=== PATIENT | male | born 1975 | race Caucasian/White ===

== ENCOUNTER 2018-01-22 00:43 | Emergency (ER) | payer SELFPAY ==
[~2018-01-22] VITALS: Ht 182.9 cm; Wt 99.8 kg
[~2018-01-22 00:43] MED LIST: AMOCLA875 PO; AMOX500 PO; CEPH500 PO; Cleocin HCl300 MG PO; HYDACE5 PO; OXYACE5T PO; Roxicodone5 MG PO
== END 2018-01-22 03:05 | disposition home or self-care (01) ==
LOC: ER 00:43
DX: T15.02XA Foreign body in cornea, left eye, initial encounter (principal); H16.002 Unspecified corneal ulcer, left eye
CPT/HCPCS: 65222; 99283

== ENCOUNTER 2019-02-23 08:53 | Inpatient (IN) | payer SELFPAY ==
[~2019-02-23] VITALS: Ht 182.9 cm; Wt 90.7 kg
[2019-02-23 09:51] LABS: BASOPHILS ABSOLUTE AUTO 0.02 K/mm3 (0.00-0.23); BASOPHILS PERCENT AUTO 0 % (0-2); EOSINOPHILS ABSOLUTE AUTO 0.02 K/mm3 (0.00-0.68); EOSINOPHILS PERCENT AUTO 0 % (0-6); Hemoglobin 15.8 g/dL (13.5-17.5); IMMATURE GRAN ABSOLUTE AUTO 0.02 K/mm3 (0.00-0.10); IMMATURE GRAN PERCENT AUTO 0 % (0-1); LYMPHOCYTES ABSOLUTE AUTO 0.98 K/mm3 (0.84-5.20); LYMPHOCYTES PERCENT AUTO 11 % (21-46); MONOCYTES ABSOLUTE AUTO 0.36 K/mm3 (0.16-1.47); MONOCYTES PERCENT AUTO 4 % (4-13); Mean Corpuscular HGB 31.5 pg (26.0-34.0); Mean Corpuscular HGB Conc 33.6 g/dL (31.5-36.5); Mean Corpuscular Volume 94 fL (80-100); Mean Platelet Volume 9.8 fL (9.1-12.4); NEUTROPHILS ABSOLUTE AUTO 7.21 K/mm3 (1.96-9.15); NEUTROPHILS PERCENT AUTO 84 % (41-73); Platelet Count 225 K/mm3 (150-400); RDW Coefficient Variation 11.9 % (11.7-14.2); RDW Standard Deviation 41.4 fL (35.1-46.3); Red Blood Cell Count 5.01 M/mm3 (4.30-5.90); White Blood Cell Count 8.61 K/mm3 (4.00-11.30)
[2019-02-23 10:11] LABS: Alanine Aminotransfer (ALT/SGP 33 U/L (12-78); Albumin, Blood 4.4 g/dL (3.4-5.0); Albumin/Globulin Ratio 1.3 (0.8-1.8); Alk Phos 84 U/L (50-136); Anion Gap 6 mmol/L (6-16); Aspartate Aminotrans (AST/SGOT 24 U/L (12-37); Bilirubin, Total 0.6 mg/dL (0.1-1.0); Blood Urea Nitrogen 15 mg/dL (8-24); Bun/Creatinine Ratio 18.1 (12.0-20.0); CO2, Blood 29 mmol/L (21-32); Chloride, Blood 105 mmol/L (98-108); Creatinine, Blood 0.83 mg/dL (0.60-1.20); Globulin, Blood 3.4 g/dL (2.2-4.0); Glomerular Filtration Rate >60 (60-); Glucose, Blood 126 mg/dL (70-99); Potassium, Blood 3.4 mmol/L (3.5-5.5); Sodium, Blood 140 mmol/L (136-145); Total Protein, Blood 7.8 g/dL (6.4-8.2)
[2019-02-23 11:05] LABS: Source, Urine Clean Catch
[2019-02-23 11:10] LABS: Bilirubin, Urine Neg (Neg); Blood, Urine Neg (Neg); Glucose Qualitative, Urine Neg (Neg); Ketones, Urine 3+ (Neg); Leukocyte Esterase, Urine Neg (Neg); Nitrite, Urine Neg (Neg); Protein, Urine 1+ (Neg); Urobilinogen, Urine NORM (Normal)
[2019-02-23 11:18] LABS: Appearance, Urine Clear (Clear); Color, Urine Yellow (P-Yellow)
--- NOTE | 2019-02-23 18:21 | NUR ---
THIS PT ARRIVED TO THE UNIT AT 1330. HE COMPLAINED OF 7/10 ABDOMINAL PAIN, WAS TREATED PER EMAR WITH FENTANYL 35 MCG Q4H. THIS WAS NOT PROPERLY RELIEVING THE PATIENT'S PAIN. HE WAS MOANING AND YELLING OUT IN PAIN, DEMANDING HE GET RELIEF SOON POSSIBLE. THE RN CALLED DR. ARANDA AND REPORTED THE PATIENT'S PAIN, HE ORDERED FENTANYL 35 MCG Q2H ALONG WITH ATIVAN 1-2 MG Q4H. HE ALSO ORDERED NG TUBE PLACEMENT. 2MG OF ATIVAN WAS ADMINISTERED AND THE NG TUBE WAS PLACED WITH INTERMITTENT SUCTION. A TOTAL OF 90 ML OF BLOOD TINGED FLUID HAS BEEN SUCTIONED SO FAR. SINCE THE PLACEMENT OF THE NG TUBE AND ADMINISTRATION OF ATIVAN, THE PT HAS BEEN ABLE TO SLEEP. HIS BLOOD PRESSURE HAS BEEN HIGH ALL DAY. HYDRALAZINE AND LABETALOL HAVE BEEN ORDERED FOR SBP GREATER THAN 160 mm Hg. WILL CONTINUE TO MONITOR.
--- NOTE | 2019-02-24 04:14 | NUR ---
SUMMARY: NO ACUTE CHANGE TONIGHT. PT REPORTS FEELING "MUCH BETTER" AND ABLE TO SLEEP. NGT DRAINED ML, DARK GREEN OUTPUT. PT HAS DENIED N/V, PAIN. UP WITH SBA TO BATHROOM. VSS, NO ACUTE SAFETY CONCERNS AT THIS TIME.
[2019-02-24 05:50] LABS: Anion Gap 7 mmol/L (6-16); Blood Urea Nitrogen 14 mg/dL (8-24); Bun/Creatinine Ratio 16.5 (12.0-20.0); CO2, Blood 26 mmol/L (21-32); Calcium, Blood 8.3 mg/dL (8.5-10.1); Chloride, Blood 108 mmol/L (98-108); Creatinine, Blood 0.85 mg/dL (0.60-1.20); Glomerular Filtration Rate >60 (60-); Glucose, Blood 104 mg/dL (70-99); Potassium, Blood 3.8 mmol/L (3.5-5.5); Sodium, Blood 141 mmol/L (136-145)
--- NOTE | 2019-02-24 17:38 | NUR ---
HE HAS BEEN FEELING BETTER TODAY.NO NAUSEA. HIS NGT PUT OUT 225 MLS THIS SHIFT TO SUCTION. AT 1600 HIS NGT WAS PLACED TO GRAVITY INSTEAD. SMALL AMT OF PALE GREEN FLUID IN TUBING. HE HAS TAKEN IN 300 MLS OF CLEAR LIQUID SO FAR. HE RECEIVED FENTANYL X1 FOR H/A. IT HELPED A LITTLE BIT. HE HAS BEEN UP TO THE BATHROOM INDEPENDENTLY. HE PASSED GAS BUT NO BM. HE HAD GOOD BOWEL SOUNDS ON ASSESSMENT THIS MORNING. IVF'S HAVE . WILL CHECK WITH MD. TELE IS NSR. PAS ON BILATERALLY. BP MUCH IMPROVED OVER YESTERDAY. JUST SPOKE WITH . WILL CONTINUE LR IVF AT 75 MLS/HR. TELE NSR 84.
--- NOTE | 2019-02-25 07:24 | NUR ---
SHIFT SUMMARY PT IS A 43 Y/O MALE, ADMITTED WITH A SBO. HE IS A&O X 4, AND SBA/INDEPENDENT IN THE ROOM. THE PT CURRENTLY HAS AN NG TUBE THAT WAS CHANGED FROM SUCTION TO GRAVITY, AND PLACED ON A CLEAR LIQUID DIET. THE PT DENIED ANY COMPLAINTS OF NAUSEA OR ABD PAIN DURING THE NIGHT, AND TOLERATED THE CLEAR LIQUID DIET WELL. HE HAD ONE SMALL BM DURING THE NIGHT. HE WAS GIVEN ATIVAN ONCE DURING THE NIGHT FOR ANXIETY RELATED TO HIS NG TUBE. VITAL SIGNS STABLE. NO OTHER ACUTE CHANGES IN PT CONDITION NOTED. WILL CONTINUE TO MONITOR AND TREAT PER EMAR.
[2019-02-25] MEDS ORDERED: HYDR10 PO (16:13)
[2019-02-25] MEDS ORDERED: ACET325 PO (16:13)
[2019-02-25] MEDS ORDERED: ONDA4ODT MM (16:14)
--- NOTE | 2019-02-25 20:08 | NUR ---
SHIFT SUMMARY PT A&OX4. PT MAKES NEEDS KNOWN. PT IND IN ROOM. REPORTS HEADACHE/NOSE PAIN, MEDICATED, WITH FENTANYL WITH POSIVE RESULTS. PT DENIES NAUSEA/VOMITING, REPORTS FLATULENCE AND BM LAST NIGHT, BS HYPERACTIVE X4 QUAD. ABD NONTENDER ON PALPATION. NG TUBE IN PLACE THIS AM, DRAINING TO GRAVITY, ORDERS TO D/C, REMOVED AT 1330. PT CONTINUES TO DENIES N/V AND REPORT FLATULENCE. PT ADVANCE TO FULL LIQUID DIET, APPEARS TO TOLERATE WELL. PT DENIES SOB, >90% ON RA. PT HYPERTENSIVE THIS AM, MEDICATED WITH APRESSOLINE PER EMAR, WITH POSITIVE RESULTS. OTHER VSS. NO OTHER ACUTE CHANGES NOTED DURING SHIFT. EDUCATED PT ON DISCHARGE INSTRUCTIONS, MEDICATIONS AND FOLLOW UP APPOINTMENTS. PCP SET UP THROUGH CARE MANAGEMENT AND PLANS TO FOLLOW UP WITH DR PEÑALOZA IN 1-3 WEEKS. PRESCRIPTIONS SENT TO [facility] PER PT REQUEST. PT LEFT VIA WHEELCHAIR AT 1649. PT STABLE UPON DISCHARE.
== END 2019-02-25 16:51 | disposition home or self-care (01) | DRG 390 ==
LOC: ER 08:53 → MEDS 12:36
PROVIDERS: Physician Assistant; ADMIT Internal Medicine
DX: K56.609 Unspecified intestinal obstruction, unspecified as to partial versus complete obstruction (principal); I10 Essential (primary) hypertension; E87.6 Hypokalemia; F15.10 Other stimulant abuse, uncomplicated
CPT/HCPCS: 36415; 74177; 80048; 80053; 83605; 83690; 85025; 96361; 96372-59; 96374-59; 96375; 99285-25; J0360; J1170; J1650; J2060; J2405; J3010; J3480; J7030; J7120; Q9967

== ENCOUNTER 2023-02-20 14:04 | Emergency (ER) | payer SELFPAY ==
[~2023-02-20] VITALS: Ht 180.3 cm; Wt 99.8 kg
[~2023-02-20 14:04] MED LIST changes: +ACET325 PO; +HYDR10 PO; +ONDA4ODT MM
== END 2023-02-20 15:30 | disposition home or self-care (01) ==
LOC: ER 14:04
DX: S86.111A Strain of other muscle(s) and tendon(s) of posterior muscle group at lower leg level, right leg, initial encounter (principal); X58.XXXA Exposure to other specified factors, initial encounter
CPT/HCPCS: 93971